=== PATIENT | male | born 1950 | race Hispanic/Latino ===

== ENCOUNTER 2021-05-26 12:49 | Inpatient (IN) | payer MEDICARE ==
[~2021-05-26] VITALS: Ht 172.7 cm; Wt 82.1 kg
[2021-05-26] MEDS ORDERED: SODIUM BICARBONATE 8.4% INJ 50 ML SYR ONE (12:55)
[2021-05-26] MEDS ORDERED: EPINEPHRINE HCL SYRINGE ONE (12:55)
[2021-05-26] MEDS ORDERED: DEXAMETHASONE SOD PHOS 10 MG/1 ML VIAL IV ONE (14:00)
[2021-05-26 14:17] LABS: BASOPHILS % 0.1 % (0.0-1.0); HEMOGLOBIN 13.2 g/dL (14.0-18.0); LYMPHOCYTES # (AUTO) 0.8 (1.0-3.2); MEAN CORPUSCULAR HEMOGLOBIN 27.4 pg (28-32); MEAN CORPUSCULAR HGB CONC 33.8 g/dL (31-35); MEAN CORPUSCULAR VOLUME 81.1 fL (81-99); MONOCYTES # (AUTO) 0.5 (0.2-0.8); MONOCYTES % 5.6 % (4.4-11.3); NEUTROPHILS # (AUTO) 6.7 (2.1-6.9); NEUTROPHILS % 83.7 % (38.7-80.0); PLATELET COUNT 333 x10e3/uL (140-360); RED BLOOD COUNT 4.81 x10e6/uL (4.3-5.7)
[2021-05-26 14:38] LABS: ALBUMIN/GLOBULIN RATIO 0.7 (0.8-2.0); ANION GAP 17.8 mmol/L (8-16); CREATININE, SERUM 0.82 mg/dL (0.72-1.25); POTASSIUM 3.8 mmol/L (3.5-5.1)
[2021-05-26] MEDS ORDERED: IOPAMIDOL 370 MG/ML 200 ML INFUS..BTL INJ ONE (15:02)
[2021-05-26] MEDS ORDERED: SODIUM CHLORIDE 0.9% 50ML 50 ML ONE (15:02)
[2021-05-26] MEDS ORDERED: REMDESIVIR 200MG 200 MG in SODIUM CHLORIDE 0.9% 100 ML IV ONE (16:30)
[2021-05-26] MEDS: ENOXAPARIN SOD INJ 40 MG/0.4 ML SYR SC SCH (17:20)
[2021-05-26] MEDS: ASCORBIC ACID 500 MG TAB PO SCH (17:20)
[2021-05-26] MEDS: CEFTRIAXONE 1 GM in SODIUM CHLORIDE 0.9% 50ML 50 ML IV SCH (19:46)
[2021-05-26 20:00] VITALS: BP 143/79
[2021-05-26] MEDS ORDERED: ZOLPIDEM TARTRATE 5 MG TAB PO PRN (21:00)
[2021-05-26 21:19] VITALS: BP 143/79
[2021-05-27] VITALS (7 sets, daily range): BP systolic 111–150; BP diastolic 68–81
[2021-05-27 06:07] LABS: BASOPHILS % 0.2 % (0.0-1.0); HEMATOCRIT 40.6 % (38.2-49.6); HEMOGLOBIN 13.4 g/dL (14.0-18.0); LYMPHOCYTES # (AUTO) 0.6 (1.0-3.2); LYMPHOCYTES % 10.5 % (18.0-39.1); MEAN CORPUSCULAR HEMOGLOBIN 27.3 pg (28-32); MEAN CORPUSCULAR VOLUME 82.7 fL (81-99); MONOCYTES # (AUTO) 0.4 (0.2-0.8); MONOCYTES % 6.7 % (4.4-11.3); NEUTROPHILS # (AUTO) 4.4 (2.1-6.9); NEUTROPHILS % 81.7 % (38.7-80.0); PLATELET COUNT 362 x10e3/uL (140-360); RED BLOOD COUNT 4.91 x10e6/uL (4.3-5.7)
[2021-05-27 06:32] LABS: ALBUMIN 2.6 g/dL (3.5-5.0); ALBUMIN/GLOBULIN RATIO 0.6 (0.8-2.0); ANION GAP 16.8 mmol/L (8-16); CALCIUM 9.2 mg/dL (8.4-10.2); CREATININE, SERUM 0.66 mg/dL (0.72-1.25); POTASSIUM 3.8 mmol/L (3.5-5.1)
[2021-05-27] MEDS ORDERED: REMDESIVIR 100MG 100 MG IV ONE (07:52)
[2021-05-27] MEDS: ASCORBIC ACID 500 MG TAB PO SCH ×2 (08:58→16:17)
[2021-05-27] MEDS: FAMOTIDINE 20 MG TAB PO SCH ×2 (08:59→16:16)
[2021-05-27] MEDS: REMDESIVIR 100MG 100 MG in SODIUM CHLORIDE 0.9% 100 ML IV SCH (14:13)
[2021-05-27] MEDS ORDERED: DEXAMETHASONE SOD PHOS 10 MG/1 ML VIAL IV SCH (15:00)
[2021-05-27] MEDS: CEFTRIAXONE 1 GM in SODIUM CHLORIDE 0.9% 50ML 50 ML IV SCH (16:17)
[2021-05-27] MEDS: ENOXAPARIN SOD INJ 40 MG/0.4 ML SYR SC SCH (16:17)
[2021-05-28] VITALS (8 sets, daily range): BP systolic 133–146; BP diastolic 71–87
[2021-05-28] MEDS: APIXAB 2.5 MG TABLET PO SCH ×2 (09:11→16:34)
[2021-05-28] MEDS: FAMOTIDINE 20 MG TAB PO SCH ×2 (09:11→16:33)
[2021-05-28] MEDS: ASCORBIC ACID 500 MG TAB PO SCH ×2 (09:11→16:34)
[2021-05-28] MEDS: REMDESIVIR 100MG 100 MG in SODIUM CHLORIDE 0.9% 100 ML IV SCH (13:39)
[2021-05-28] MEDS: CEFTRIAXONE 1 GM in SODIUM CHLORIDE 0.9% 50ML 50 ML IV SCH (16:34)
[2021-05-29] VITALS (14 sets, daily range): BP systolic 130–157; BP diastolic 69–86
[2021-05-29] MEDS: APIXAB 2.5 MG TABLET PO SCH ×2 (08:39→17:44)
[2021-05-29] MEDS: ASCORBIC ACID 500 MG TAB PO SCH ×2 (08:39→17:44)
[2021-05-29] MEDS: FAMOTIDINE 20 MG TAB PO SCH ×2 (08:39→16:20)
[2021-05-29] MEDS: REMDESIVIR 100MG 100 MG in SODIUM CHLORIDE 0.9% 100 ML IV SCH (15:17)
[2021-05-29] MEDS: CEFTRIAXONE 1 GM in SODIUM CHLORIDE 0.9% 50ML 50 ML IV SCH (17:44)
[2021-05-29] MEDS: DEXAMETHASONE SOD PHOS 10 MG/1 ML VIAL IV SCH (20:36)
[2021-05-29] MEDS: ACETAMINOPHEN 325 MG TAB PO PRN (22:09)
[2021-05-29] MEDS ORDERED: ACETAMINOPHEN 325 MG TAB ONE (22:16)
[2021-05-30] VITALS (25 sets, daily range): BP systolic 112–151; BP diastolic 55–85
[2021-05-30] MEDS: APIXAB 2.5 MG TABLET PO SCH ×2 (08:02→16:19)
[2021-05-30] MEDS: FAMOTIDINE 20 MG TAB PO SCH ×2 (08:02→16:19)
[2021-05-30] MEDS: ASCORBIC ACID 500 MG TAB PO SCH ×2 (08:02→16:19)
[2021-05-30 08:37] LABS: BASOPHILS % 0.2 % (0.0-1.0); HEMATOCRIT 40.8 % (38.2-49.6); HEMOGLOBIN 13.4 g/dL (14.0-18.0); LYMPHOCYTES # (AUTO) 0.4 (1.0-3.2); LYMPHOCYTES % 3.7 % (18.0-39.1); MEAN CORPUSCULAR HEMOGLOBIN 27.5 pg (28-32); MEAN CORPUSCULAR HGB CONC 32.8 g/dL (31-35); MEAN CORPUSCULAR VOLUME 83.8 fL (81-99); MONOCYTES # (AUTO) 0.3 (0.2-0.8); MONOCYTES % 2.6 % (4.4-11.3); NEUTROPHILS # (AUTO) 10.5 (2.1-6.9); NEUTROPHILS % 92.4 % (38.7-80.0); PLATELET COUNT 295 x10e3/uL (140-360); RED BLOOD COUNT 4.87 x10e6/uL (4.3-5.7); RED CELL DISTRIBUTION WIDTH 13.3 % (11.7-14.4)
[2021-05-30 09:11] LABS: ALBUMIN 2.4 g/dL (3.5-5.0); ALBUMIN/GLOBULIN RATIO 0.5 (0.8-2.0); ANION GAP 14.1 mmol/L (8-16); CREATININE, SERUM 0.7 mg/dL (0.72-1.25); POTASSIUM 4.1 mmol/L (3.5-5.1)
[2021-05-30 11:26] LABS: LYMPHOCYTES % (MANUAL) 2 % (19-48); NEUTROPHILS % (MANUAL) 98 % (40-74); PLATELET ESTIMATE ADEQUATE
[2021-05-30 11:27] LABS: PLATELET MORPHOLOGY COMMENT NORMAL; RBC MORPHOLOGY COMMENT NORMAL
[2021-05-30] MEDS: REMDESIVIR 100MG 100 MG in SODIUM CHLORIDE 0.9% 100 ML IV SCH (13:08)
[2021-05-30] MEDS: CEFTRIAXONE 1 GM in SODIUM CHLORIDE 0.9% 50ML 50 ML IV SCH (16:15)
[2021-05-30] MEDS: BARICITINIB 2 MG TABLET PO SCH (16:19)
[2021-05-30] MEDS: DEXAMETHASONE SOD PHOS 10 MG/1 ML VIAL IV SCH (20:57)
[2021-05-31] VITALS (24 sets, daily range): BP systolic 94–148; BP diastolic 51–85
[2021-05-31 05:56] LABS: BASOPHILS % 0.2 % (0.0-1.0); HEMOGLOBIN 12.6 g/dL (14.0-18.0); LYMPHOCYTES # (AUTO) 0.6 (1.0-3.2); LYMPHOCYTES % 4.8 % (18.0-39.1); MEAN CORPUSCULAR HEMOGLOBIN 27.2 pg (28-32); MEAN CORPUSCULAR HGB CONC 32.3 g/dL (31-35); MEAN CORPUSCULAR VOLUME 84.1 fL (81-99); MONOCYTES # (AUTO) 0.3 (0.2-0.8); MONOCYTES % 2.3 % (4.4-11.3); NEUTROPHILS # (AUTO) 11.6 (2.1-6.9); NEUTROPHILS % 91.7 % (38.7-80.0); PLATELET COUNT 277 x10e3/uL (140-360); RED BLOOD COUNT 4.64 x10e6/uL (4.3-5.7); RED CELL DISTRIBUTION WIDTH 13.4 % (11.7-14.4)
[2021-05-31 06:26] LABS: ALBUMIN 2.4 g/dL (3.5-5.0); ALBUMIN/GLOBULIN RATIO 0.5 (0.8-2.0); ANION GAP 14.4 mmol/L (8-16); CALCIUM 8.6 mg/dL (8.4-10.2); CREATININE, SERUM 0.71 mg/dL (0.72-1.25); POTASSIUM 4.4 mmol/L (3.5-5.1)
[2021-05-31] MEDS: FAMOTIDINE 20 MG TAB PO SCH ×2 (06:35→16:05)
[2021-05-31] MEDS: BARICITINIB 2 MG TABLET PO SCH (08:07)
[2021-05-31] MEDS: APIXAB 2.5 MG TABLET PO SCH ×2 (08:07→16:05)
[2021-05-31] MEDS: ASCORBIC ACID 500 MG TAB PO SCH ×2 (08:07→16:05)
[2021-05-31] MEDS: GUAIFENESIN/CODEINE 5 ML LIQD PO PRN (14:00)
[2021-05-31] MEDS: DEXAMETHASONE SOD PHOS 10 MG/1 ML VIAL IV SCH (20:17)
[2021-06-01] VITALS (25 sets, daily range): BP systolic 118–152; BP diastolic 70–95
[2021-06-01 05:06] LABS: BASOPHILS % 0.1 % (0.0-1.0); HEMATOCRIT 38.4 % (38.2-49.6); HEMOGLOBIN 12.5 g/dL (14.0-18.0); LYMPHOCYTES # (AUTO) 0.6 (1.0-3.2); LYMPHOCYTES % 4.3 % (18.0-39.1); MEAN CORPUSCULAR HEMOGLOBIN 27.4 pg (28-32); MEAN CORPUSCULAR HGB CONC 32.6 g/dL (31-35); MONOCYTES # (AUTO) 0.7 (0.2-0.8); MONOCYTES % 5.1 % (4.4-11.3); NEUTROPHILS # (AUTO) 11.5 (2.1-6.9); NEUTROPHILS % 89.6 % (38.7-80.0); PLATELET COUNT 264 x10e3/uL (140-360); RED BLOOD COUNT 4.57 x10e6/uL (4.3-5.7); RED CELL DISTRIBUTION WIDTH 13.4 % (11.7-14.4)
[2021-06-01 06:00] LABS: ALBUMIN 2.5 g/dL (3.5-5.0); ALBUMIN/GLOBULIN RATIO 0.6 (0.8-2.0); ANION GAP 12.6 mmol/L (8-16); CALCIUM 8.8 mg/dL (8.4-10.2); CREATININE, SERUM 0.75 mg/dL (0.72-1.25); POTASSIUM 4.6 mmol/L (3.5-5.1)
[2021-06-01] MEDS: APIXAB 2.5 MG TABLET PO SCH ×2 (08:07→16:11)
[2021-06-01] MEDS: FAMOTIDINE 20 MG TAB PO SCH ×2 (08:07→16:11)
[2021-06-01] MEDS: ASCORBIC ACID 500 MG TAB PO SCH ×2 (08:07→16:11)
[2021-06-01] MEDS: BARICITINIB 2 MG TABLET PO SCH (08:07)
[2021-06-01] MEDS: GUAIFENESIN/CODEINE 5 ML LIQD PO PRN ×2 (09:09→19:46)
[2021-06-01] MEDS: DEXAMETHASONE SOD PHOS 10 MG/1 ML VIAL IV SCH (19:46)
[2021-06-02] VITALS (15 sets, daily range): BP systolic 115–143; BP diastolic 68–83
[2021-06-02] MEDS: GUAIFENESIN/CODEINE 5 ML LIQD PO PRN ×5 (00:20→20:18)
[2021-06-02 06:40] LABS: BASOPHILS % 0.2 % (0.0-1.0); EOSINOPHILS % 0.3 % (0.0-6.0); HEMATOCRIT 42.3 % (38.2-49.6); HEMOGLOBIN 13.5 g/dL (14.0-18.0); LYMPHOCYTES # (AUTO) 0.6 (1.0-3.2); LYMPHOCYTES % 4.8 % (18.0-39.1); MEAN CORPUSCULAR HEMOGLOBIN 27.3 pg (28-32); MEAN CORPUSCULAR HGB CONC 31.9 g/dL (31-35); MEAN CORPUSCULAR VOLUME 85.6 fL (81-99); MONOCYTES # (AUTO) 0.7 (0.2-0.8); MONOCYTES % 5.5 % (4.4-11.3); NEUTROPHILS # (AUTO) 10.6 (2.1-6.9); NEUTROPHILS % 87.9 % (38.7-80.0); PLATELET COUNT 253 x10e3/uL (140-360); RED BLOOD COUNT 4.94 x10e6/uL (4.3-5.7); RED CELL DISTRIBUTION WIDTH 13.4 % (11.7-14.4)
[2021-06-02 06:58] LABS: ALBUMIN 2.5 g/dL (3.5-5.0); ALBUMIN/GLOBULIN RATIO 0.5 (0.8-2.0); ANION GAP 13.7 mmol/L (8-16); CALCIUM 8.9 mg/dL (8.4-10.2); CREATININE, SERUM 0.77 mg/dL (0.72-1.25); POTASSIUM 4.7 mmol/L (3.5-5.1)
[2021-06-02] MEDS: FAMOTIDINE 20 MG TAB PO SCH ×2 (07:56→09:01)
[2021-06-02] MEDS: ASCORBIC ACID 500 MG TAB PO SCH ×2 (09:01→16:05)
[2021-06-02] MEDS: BARICITINIB 2 MG TABLET PO SCH (09:01)
[2021-06-02] MEDS: APIXAB 2.5 MG TABLET PO SCH ×2 (09:01→16:05)
[2021-06-02] MEDS: DEXAMETHASONE SOD PHOS 10 MG/1 ML VIAL IV SCH (20:18)
[2021-06-03] VITALS (16 sets, daily range): BP systolic 114–136; BP diastolic 76–93
[2021-06-03] MEDS: GUAIFENESIN/CODEINE 5 ML LIQD PO PRN (05:44)
[2021-06-03 06:15] LABS: BASOPHILS % 0.2 % (0.0-1.0); EOSINOPHILS % 0.1 % (0.0-6.0); HEMATOCRIT 43.3 % (38.2-49.6); LYMPHOCYTES # (AUTO) 0.7 (1.0-3.2); LYMPHOCYTES % 4.4 % (18.0-39.1); MEAN CORPUSCULAR HEMOGLOBIN 27.6 pg (28-32); MEAN CORPUSCULAR HGB CONC 32.3 g/dL (31-35); MEAN CORPUSCULAR VOLUME 85.4 fL (81-99); MONOCYTES # (AUTO) 0.7 (0.2-0.8); MONOCYTES % 4.5 % (4.4-11.3); NEUTROPHILS # (AUTO) 13.4 (2.1-6.9); NEUTROPHILS % 89.2 % (38.7-80.0); PLATELET COUNT 251 x10e3/uL (140-360); RED BLOOD COUNT 5.07 x10e6/uL (4.3-5.7); RED CELL DISTRIBUTION WIDTH 13.3 % (11.7-14.4)
[2021-06-03 06:40] LABS: ALBUMIN 2.5 g/dL (3.5-5.0); ALBUMIN/GLOBULIN RATIO 0.5 (0.8-2.0); ANION GAP 15.8 mmol/L (8-16); CALCIUM 8.9 mg/dL (8.4-10.2); CREATININE, SERUM 0.72 mg/dL (0.72-1.25); POTASSIUM 4.8 mmol/L (3.5-5.1)
[2021-06-03] MEDS: BARICITINIB 2 MG TABLET PO SCH (08:42)
[2021-06-03] MEDS: ASCORBIC ACID 500 MG TAB PO SCH ×2 (08:42→16:20)
[2021-06-03] MEDS: APIXAB 2.5 MG TABLET PO SCH ×2 (08:42→16:20)
[2021-06-03] MEDS: FAMOTIDINE 20 MG TAB PO SCH ×2 (08:42→16:20)
[2021-06-03] MEDS ORDERED: ETOMIDATE 2 MG/ML 10 ML INJ IV ONE (15:01)
[2021-06-03] MEDS ORDERED: WATER STERILE 10 ML VIAL ONE (15:01)
[2021-06-03] MEDS ORDERED: SUCCINYLCHOLINE CHLORIDE 20 MG/ML 10ML VIAL ONE (15:01)
[2021-06-03] MEDS ORDERED: VECURONIUM BROMIDE FOR INJ 20 MG VIAL ONE (15:01)
[2021-06-03] MEDS: DEXAMETHASONE SOD PHOS 10 MG/1 ML VIAL IV SCH (20:24)
[2021-06-04] VITALS (24 sets, daily range): BP systolic 97–139; BP diastolic 54–89
[2021-06-04 05:00] LABS: BASOPHILS % 0.2 % (0.0-1.0); EOSINOPHILS % 0.1 % (0.0-6.0); HEMATOCRIT 45.6 % (38.2-49.6); HEMOGLOBIN 14.8 g/dL (14.0-18.0); LYMPHOCYTES # (AUTO) 0.9 (1.0-3.2); LYMPHOCYTES % 5.8 % (18.0-39.1); MEAN CORPUSCULAR HEMOGLOBIN 27.2 pg (28-32); MEAN CORPUSCULAR HGB CONC 32.5 g/dL (31-35); MEAN CORPUSCULAR VOLUME 83.8 fL (81-99); MONOCYTES # (AUTO) 0.5 (0.2-0.8); MONOCYTES % 3.3 % (4.4-11.3); NEUTROPHILS # (AUTO) 14.3 (2.1-6.9); PLATELET COUNT 305 x10e3/uL (140-360); RED BLOOD COUNT 5.44 x10e6/uL (4.3-5.7); RED CELL DISTRIBUTION WIDTH 13.5 % (11.7-14.4)
[2021-06-04 05:34] LABS: ALBUMIN 2.6 g/dL (3.5-5.0); ALBUMIN/GLOBULIN RATIO 0.5 (0.8-2.0); ANION GAP 16.8 mmol/L (8-16); CALCIUM 9.3 mg/dL (8.4-10.2); CREATININE, SERUM 0.83 mg/dL (0.72-1.25); POTASSIUM 4.8 mmol/L (3.5-5.1)
[2021-06-04] MEDS: FAMOTIDINE 20 MG TAB PO SCH ×2 (07:51→16:05)
[2021-06-04] MEDS: BARICITINIB 2 MG TABLET PO SCH (07:59)
[2021-06-04] MEDS: ASCORBIC ACID 500 MG TAB PO SCH ×2 (07:59→16:05)
[2021-06-04] MEDS: APIXAB 2.5 MG TABLET PO SCH ×2 (07:59→16:05)
[2021-06-04] MEDS: GUAIFENESIN/CODEINE 5 ML LIQD PO PRN (08:32)
[2021-06-04] MEDS ORDERED: LACTATED RINGER'S 500 ML INJ ONE (09:15)
[2021-06-04] MEDS ORDERED: DEXMEDETOMIDINE 400MCG/NS100ML 100 ML IV PRN (09:30)
[2021-06-04] MEDS: PIPERACILLIN/TAZOBACTAM 3.375 GM in SODIUM CHLORIDE 0.9% 50ML 50 ML IV SCH ×3 (09:54→21:00)
[2021-06-04] MEDS: DEXAMETHASONE SOD PHOS 10 MG/1 ML VIAL IV SCH (20:42)
[2021-06-05] VITALS (27 sets, daily range): BP systolic 62–143; BP diastolic 49–78
[2021-06-05] MEDS: GUAIFENESIN/CODEINE 5 ML LIQD PO PRN ×2 (03:13→05:36)
[2021-06-05] MEDS: PIPERACILLIN/TAZOBACTAM 3.375 GM in SODIUM CHLORIDE 0.9% 50ML 50 ML IV SCH ×4 (04:14→21:15)
[2021-06-05 05:48] LABS: BASOPHILS % 0.2 % (0.0-1.0); EOSINOPHILS % 0.1 % (0.0-6.0); HEMATOCRIT 39.8 % (38.2-49.6); HEMOGLOBIN 12.7 g/dL (14.0-18.0); LYMPHOCYTES # (AUTO) 0.8 (1.0-3.2); MEAN CORPUSCULAR HEMOGLOBIN 27.4 pg (28-32); MEAN CORPUSCULAR HGB CONC 31.9 g/dL (31-35); MONOCYTES # (AUTO) 0.6 (0.2-0.8); MONOCYTES % 3.3 % (4.4-11.3); NEUTROPHILS % 91.1 % (38.7-80.0); PLATELET COUNT 224 x10e3/uL (140-360); RED BLOOD COUNT 4.63 x10e6/uL (4.3-5.7); RED CELL DISTRIBUTION WIDTH 13.5 % (11.7-14.4)
[2021-06-05 06:26] LABS: ALBUMIN 2.3 g/dL (3.5-5.0); ALBUMIN/GLOBULIN RATIO 0.5 (0.8-2.0); ANION GAP 15.7 mmol/L (8-16); CALCIUM 8.6 mg/dL (8.4-10.2); CREATININE, SERUM 0.8 mg/dL (0.72-1.25); POTASSIUM 4.7 mmol/L (3.5-5.1)
[2021-06-05] MEDS: APIXAB 2.5 MG TABLET PO SCH ×2 (08:01→16:39)
[2021-06-05] MEDS: FAMOTIDINE 20 MG TAB PO SCH ×2 (08:01→16:39)
[2021-06-05] MEDS: ASCORBIC ACID 500 MG TAB PO SCH ×2 (08:01→16:39)
[2021-06-05] MEDS: FENTANYL 2000MCG/NS 250 250 ML IV SCH ×2 (15:09→21:27)
[2021-06-05] MEDS: MIDAZOLAM HCL 5MG/ML 10ML VIAL 100 ML IV PRN ×2 (15:12→21:16)
[2021-06-05] MEDS: ROCURONIUM 1250MG/NS 250 250 ML IV PRN (15:13)
[2021-06-05] MEDS ORDERED: SODIUM CHLORIDE 0.9% 1000ML 1,000 ML ONE (15:17)
[2021-06-05 17:14] LABS: ABG PH 7.21 (7.35-7.45)
[2021-06-05 17:15] LABS: ABG HCO3 29 mmol/L (22-26); ABG PCO2 73 mmHg (35-45); ABG PO2 82 mmHg (80-105); ABG TCO2 31
[2021-06-06] VITALS (30 sets, daily range): BP systolic 88–130; BP diastolic 45–71
[2021-06-06] MEDS: MIDAZOLAM HCL 5MG/ML 10ML VIAL 100 ML IV PRN ×5 (02:35→22:47)
[2021-06-06] MEDS: PIPERACILLIN/TAZOBACTAM 3.375 GM in SODIUM CHLORIDE 0.9% 50ML 50 ML IV SCH ×4 (04:19→22:13)
[2021-06-06] MEDS: FENTANYL 2000MCG/NS 250 250 ML IV SCH ×4 (04:21→22:46)
[2021-06-06 04:57] LABS: BASOPHILS % 0.2 % (0.0-1.0); EOSINOPHILS # (AUTO) 0.2 (0.0-0.4); EOSINOPHILS % 1.1 % (0.0-6.0); HEMATOCRIT 39.1 % (38.2-49.6); HEMOGLOBIN 12.1 g/dL (14.0-18.0); LYMPHOCYTES # (AUTO) 0.8 (1.0-3.2); LYMPHOCYTES % 4.5 % (18.0-39.1); MEAN CORPUSCULAR HEMOGLOBIN 27.5 pg (28-32); MEAN CORPUSCULAR HGB CONC 30.9 g/dL (31-35); MEAN CORPUSCULAR VOLUME 88.9 fL (81-99); MONOCYTES # (AUTO) 0.6 (0.2-0.8); MONOCYTES % 3.3 % (4.4-11.3); NEUTROPHILS # (AUTO) 16.7 (2.1-6.9); NEUTROPHILS % 89.8 % (38.7-80.0); PLATELET COUNT 215 x10e3/uL (140-360); RED CELL DISTRIBUTION WIDTH 13.6 % (11.7-14.4)
[2021-06-06 05:33] LABS: ALBUMIN/GLOBULIN RATIO 0.5 (0.8-2.0); ANION GAP 12.5 mmol/L (8-16); CREATININE, SERUM 0.77 mg/dL (0.72-1.25); POTASSIUM 4.5 mmol/L (3.5-5.1)
[2021-06-06] MEDS: APIXAB 2.5 MG TABLET PO SCH ×2 (07:53→16:03)
[2021-06-06] MEDS: ASCORBIC ACID 500 MG TAB PO SCH ×2 (07:53→16:03)
[2021-06-06] MEDS: FAMOTIDINE 20 MG TAB PO SCH ×2 (07:53→16:03)
[2021-06-06 08:22] LABS: ABG PH 7.26 (7.35-7.45)
[2021-06-06 08:23] LABS: ABG HCO3 31 mmol/L (22-26); ABG PCO2 69 mmHg (35-45); ABG PO2 111 mmHg (80-105); ABG TCO2 33
[2021-06-06] MEDS ORDERED: PIPERACILLIN/TAZOBACTAM 3.375 GM VIAL ONE (22:46)
[2021-06-06] MEDS: ROCURONIUM 1250MG/NS 250 250 ML IV PRN (22:47)
[2021-06-06] MEDS ORDERED: SODIUM CHLORIDE 0.9% 50ML 50 ML ONE (22:48)
[2021-06-07] VITALS (27 sets, daily range): BP systolic 75–122; BP diastolic 44–71
[2021-06-07] MEDS: ACETAMINOPHEN 325 MG TAB PO PRN ×3 (00:18→19:44)
[2021-06-07] MEDS: PIPERACILLIN/TAZOBACTAM 3.375 GM in SODIUM CHLORIDE 0.9% 50ML 50 ML IV SCH ×4 (04:09→22:00)
[2021-06-07 05:41] LABS: BASOPHILS % 0.1 % (0.0-1.0); EOSINOPHILS # (AUTO) 0.2 (0.0-0.4); HEMATOCRIT 35.1 % (38.2-49.6); HEMOGLOBIN 10.8 g/dL (14.0-18.0); LYMPHOCYTES # (AUTO) 0.7 (1.0-3.2); LYMPHOCYTES % 4.1 % (18.0-39.1); MEAN CORPUSCULAR HEMOGLOBIN 27.5 pg (28-32); MEAN CORPUSCULAR HGB CONC 30.8 g/dL (31-35); MEAN CORPUSCULAR VOLUME 89.3 fL (81-99); MONOCYTES # (AUTO) 0.6 (0.2-0.8); MONOCYTES % 3.6 % (4.4-11.3); NEUTROPHILS # (AUTO) 14.7 (2.1-6.9); NEUTROPHILS % 90.3 % (38.7-80.0); PLATELET COUNT 219 x10e3/uL (140-360); RED BLOOD COUNT 3.93 x10e6/uL (4.3-5.7); RED CELL DISTRIBUTION WIDTH 13.6 % (11.7-14.4)
[2021-06-07] MEDS: MIDAZOLAM HCL 5MG/ML 10ML VIAL 100 ML IV PRN ×4 (05:41→20:34)
[2021-06-07 06:09] LABS: ALBUMIN 1.7 g/dL (3.5-5.0); ALBUMIN/GLOBULIN RATIO 0.4 (0.8-2.0); ANION GAP 11.4 mmol/L (8-16); CALCIUM 7.8 mg/dL (8.4-10.2); CREATININE, SERUM 0.68 mg/dL (0.72-1.25); POTASSIUM 4.4 mmol/L (3.5-5.1)
[2021-06-07 07:22] LABS: ABG HCO3 33 mmol/L (22-26); ABG PCO2 60 mmHg (35-45); ABG PH 7.35 (7.35-7.45); ABG PO2 72 mmHg (80-105); ABG TCO2 35
[2021-06-07] MEDS: FAMOTIDINE 20 MG TAB PO SCH ×2 (08:26→16:09)
[2021-06-07] MEDS: ASCORBIC ACID 500 MG TAB PO SCH ×2 (08:26→16:09)
[2021-06-07] MEDS: APIXAB 2.5 MG TABLET PO SCH ×2 (08:26→16:09)
[2021-06-07] MEDS: FENTANYL 2000MCG/NS 250 250 ML IV SCH ×2 (09:32→17:53)
[2021-06-07] MEDS: PROPOFOL IV EMULSION 10MG/ML 100 ML IV SCH (17:21)
[2021-06-08] VITALS (28 sets, daily range): BP systolic 104–122; BP diastolic 56–65
[2021-06-08] MEDS: FENTANYL 2000MCG/NS 250 250 ML IV SCH ×3 (01:10→21:01)
[2021-06-08] MEDS: MIDAZOLAM HCL 5MG/ML 10ML VIAL 100 ML IV PRN ×4 (01:56→19:49)
[2021-06-08] MEDS: PIPERACILLIN/TAZOBACTAM 3.375 GM in SODIUM CHLORIDE 0.9% 50ML 50 ML IV SCH ×4 (04:11→21:02)
[2021-06-08 05:02] LABS: BASOPHILS % 0.3 % (0.0-1.0); EOSINOPHILS # (AUTO) 0.2 (0.0-0.4); EOSINOPHILS % 1.6 % (0.0-6.0); HEMATOCRIT 32.9 % (38.2-49.6); HEMOGLOBIN 10.3 g/dL (14.0-18.0); LYMPHOCYTES # (AUTO) 0.8 (1.0-3.2); LYMPHOCYTES % 5.2 % (18.0-39.1); MEAN CORPUSCULAR HEMOGLOBIN 27.6 pg (28-32); MEAN CORPUSCULAR HGB CONC 31.3 g/dL (31-35); MEAN CORPUSCULAR VOLUME 88.2 fL (81-99); MONOCYTES # (AUTO) 0.7 (0.2-0.8); MONOCYTES % 4.5 % (4.4-11.3); NEUTROPHILS # (AUTO) 13.3 (2.1-6.9); NEUTROPHILS % 87.2 % (38.7-80.0); PLATELET COUNT 274 x10e3/uL (140-360); RED BLOOD COUNT 3.73 x10e6/uL (4.3-5.7); RED CELL DISTRIBUTION WIDTH 13.8 % (11.7-14.4)
[2021-06-08 05:44] LABS: ALBUMIN 1.5 g/dL (3.5-5.0); ALBUMIN/GLOBULIN RATIO 0.4 (0.8-2.0); ANION GAP 14.2 mmol/L (8-16); CALCIUM 7.9 mg/dL (8.4-10.2); CREATININE, SERUM 0.69 mg/dL (0.72-1.25); POTASSIUM 4.2 mmol/L (3.5-5.1)
[2021-06-08] MEDS: ASCORBIC ACID 500 MG TAB PO SCH ×2 (07:35→18:16)
[2021-06-08] MEDS: APIXAB 2.5 MG TABLET PO SCH (07:35)
[2021-06-08] MEDS: FAMOTIDINE 20 MG TAB PO SCH ×2 (07:35→16:16)
[2021-06-08] MEDS: PROPOFOL IV EMULSION 10MG/ML 100 ML IV SCH ×2 (07:37→20:56)
[2021-06-08 08:36] LABS: ABG PCO2 68 mmHg (35-45); ABG PH 7.33 (7.35-7.45); ABG PO2 86 mmHg (80-105)
[2021-06-08 08:37] LABS: ABG HCO3 36 mmol/L (22-26); ABG TCO2 38
[2021-06-08] MEDS ORDERED: ALBUMIN 25% 25GM 100ML 0.25 GM/ML BTL IV SCH (14:00)
[2021-06-08] MEDS: FUROSEMIDE INJ 10 MG/ML 4 ML VIAL IV SCH (14:21)
[2021-06-08] MEDS: ALBUMIN 25% 25GM 100ML 100 ML IV SCH ×2 (14:21→21:02)
[2021-06-08] MEDS: NOREPINEPHRINE 8 MG/D5W 250 ML 250 ML IV PRN (20:56)
[2021-06-08] MEDS: ENOXAPARIN SOD INJ 40 MG/0.4 ML SYR SC SCH (21:02)
[2021-06-09] VITALS (26 sets, daily range): BP systolic 91–133; BP diastolic 52–73
[2021-06-09] MEDS: MIDAZOLAM HCL 5MG/ML 10ML VIAL 100 ML IV PRN ×4 (01:11→18:37)
[2021-06-09] MEDS: ACETAMINOPHEN 325 MG TAB PO PRN ×2 (02:15→21:08)
[2021-06-09] MEDS: FUROSEMIDE INJ 10 MG/ML 4 ML VIAL IV SCH (02:15)
[2021-06-09] MEDS: PIPERACILLIN/TAZOBACTAM 3.375 GM in SODIUM CHLORIDE 0.9% 50ML 50 ML IV SCH ×4 (03:15→21:07)
[2021-06-09] MEDS: FENTANYL 2000MCG/NS 250 250 ML IV SCH ×3 (04:22→18:36)
[2021-06-09 06:08] LABS: BASOPHILS # (AUTO) 0.1 (0.0-0.1); BASOPHILS % 0.4 % (0.0-1.0); EOSINOPHILS # (AUTO) 0.2 (0.0-0.4); EOSINOPHILS % 1.4 % (0.0-6.0); HEMATOCRIT 32.7 % (38.2-49.6); HEMOGLOBIN 9.7 g/dL (14.0-18.0); LYMPHOCYTES # (AUTO) 0.9 (1.0-3.2); LYMPHOCYTES % 6.3 % (18.0-39.1); MEAN CORPUSCULAR HEMOGLOBIN 27.3 pg (28-32); MEAN CORPUSCULAR HGB CONC 29.7 g/dL (31-35); MEAN CORPUSCULAR VOLUME 92.1 fL (81-99); MONOCYTES # (AUTO) 0.8 (0.2-0.8); MONOCYTES % 5.9 % (4.4-11.3); NEUTROPHILS # (AUTO) 11.7 (2.1-6.9); NEUTROPHILS % 84.9 % (38.7-80.0); PLATELET COUNT 260 x10e3/uL (140-360); RED BLOOD COUNT 3.55 x10e6/uL (4.3-5.7); RED CELL DISTRIBUTION WIDTH 14.2 % (11.7-14.4)
[2021-06-09] MEDS: ALBUMIN 25% 25GM 100ML 100 ML IV SCH (06:23)
[2021-06-09 06:27] LABS: ALBUMIN 2.5 g/dL (3.5-5.0); ALBUMIN/GLOBULIN RATIO 0.6 (0.8-2.0); ANION GAP 13.7 mmol/L (8-16); CALCIUM 7.9 mg/dL (8.4-10.2); CREATININE, SERUM 0.81 mg/dL (0.72-1.25); POTASSIUM 3.7 mmol/L (3.5-5.1)
[2021-06-09] MEDS: FAMOTIDINE 20 MG TAB PO SCH ×2 (07:18→17:20)
[2021-06-09] MEDS: ENOXAPARIN SOD INJ 40 MG/0.4 ML SYR SC SCH ×2 (08:28→21:07)
[2021-06-09] MEDS: ASCORBIC ACID 500 MG TAB PO SCH ×2 (08:28→17:20)
[2021-06-09 09:19] LABS: ABG HCO3 38 mmol/L (22-26); ABG PH 7.35 (7.35-7.45); ABG PO2 58 mmHg (80-105); ABG TCO2 40
[2021-06-09 09:20] LABS: ABG PCO2 70 mmHg (35-45)
[2021-06-09] MEDS ORDERED: SODIUM CHLORIDE 0.9% 250ML 250 ML ONE (10:00)
[2021-06-09] MEDS: PROPOFOL IV EMULSION 10MG/ML 100 ML IV SCH ×2 (15:38→21:08)
[2021-06-09] MEDS: ROCURONIUM 1250MG/NS 250 250 ML IV PRN (21:08)
[2021-06-10] VITALS (27 sets, daily range): BP systolic 90–109; BP diastolic 51–72
[2021-06-10] MEDS: FENTANYL 2000MCG/NS 250 250 ML IV SCH ×4 (00:30→22:00)
[2021-06-10] MEDS: MIDAZOLAM HCL 5MG/ML 10ML VIAL 100 ML IV PRN ×4 (00:44→22:00)
[2021-06-10] MEDS: PIPERACILLIN/TAZOBACTAM 3.375 GM in SODIUM CHLORIDE 0.9% 50ML 50 ML IV SCH ×2 (04:07→09:33)
[2021-06-10] MEDS: NOREPINEPHRINE 8 MG/D5W 250 ML 250 ML IV PRN (06:11)
[2021-06-10 06:34] LABS: BASOPHILS # (AUTO) 0.1 (0.0-0.1); BASOPHILS % 0.4 % (0.0-1.0); EOSINOPHILS % 0.1 % (0.0-6.0); HEMATOCRIT 34.8 % (38.2-49.6); HEMOGLOBIN 10.3 g/dL (14.0-18.0); LYMPHOCYTES % 4.8 % (18.0-39.1); MEAN CORPUSCULAR HEMOGLOBIN 27.6 pg (28-32); MEAN CORPUSCULAR HGB CONC 29.6 g/dL (31-35); MEAN CORPUSCULAR VOLUME 93.3 fL (81-99); MONOCYTES # (AUTO) 1.2 (0.2-0.8); MONOCYTES % 5.9 % (4.4-11.3); NEUTROPHILS # (AUTO) 18.2 (2.1-6.9); NEUTROPHILS % 87.3 % (38.7-80.0); PLATELET COUNT 378 x10e3/uL (140-360); RED BLOOD COUNT 3.73 x10e6/uL (4.3-5.7); RED CELL DISTRIBUTION WIDTH 14.6 % (11.7-14.4)
[2021-06-10 06:36] LABS: ALBUMIN 2.6 g/dL (3.5-5.0); ALBUMIN/GLOBULIN RATIO 0.6 (0.8-2.0); CALCIUM 8.4 mg/dL (8.4-10.2); CREATININE, SERUM 0.89 mg/dL (0.72-1.25)
[2021-06-10] MEDS: FAMOTIDINE 20 MG TAB PO SCH ×2 (07:46→16:13)
[2021-06-10] MEDS: ACETAMINOPHEN 325 MG TAB PO PRN (07:46)
[2021-06-10] MEDS: ENOXAPARIN SOD INJ 40 MG/0.4 ML SYR SC SCH ×2 (08:41→22:43)
[2021-06-10] MEDS: ASCORBIC ACID 500 MG TAB PO SCH ×2 (08:41→16:13)
[2021-06-10 09:04] LABS: ABG PH 7.32 (7.35-7.45)
[2021-06-10 09:05] LABS: ABG HCO3 38 mmol/L (22-26); ABG PCO2 74 mmHg (35-45); ABG PO2 70 mmHg (80-105); ABG TCO2 41
[2021-06-10] MEDS: METOCLOPRAMIDE HCL 10 MG/2ML VIAL IV SCH ×2 (09:34→16:13)
[2021-06-10] MEDS: Vancomycin IV 1 GM in SODIUM CHLORIDE 0.9% 250ML 250 ML IV SCH ×2 (12:33→22:43)
[2021-06-10] MEDS: MEROPENEM 1 GM in SODIUM CHLORIDE 0.9% 100 ML IV SCH ×2 (12:36→22:43)
[2021-06-10] MEDS ORDERED: FUROSEMIDE INJ 10 MG/ML 2 ML VIAL IV ONE (14:45)
[2021-06-10 16:22] LABS: TOTAL PROTEIN, URINE 171.8 mg/dL (1-14)
[2021-06-10 16:25] LABS: CLARITY,URINE SL CLOUDY (CLEAR); COLOR,URINE YELLOW (YELLOW); KETONES,URINE NEGATIVE (NEGATIVE); LEUKOCYTE ESTERASE ,URINE NEGATIVE (NEGATIVE); NITRITE,URINE NEGATIVE (NEGATIVE); PROTEIN,URINE DIPSTICK 2+ (NEGATIVE); URINE UROBILINOGEN 4 mg/dL (0.2 - 1)
[2021-06-10 16:31] LABS: BACTERIA,URINE MODERATE /HPF; EPITHELIAL CELLS,URINE FEW /LPF; RBC,URINE 0-5 /HPF (0-5); WBC,URINE (MAN) 0-5 /HPF (0-5)
[2021-06-10 18:19] LABS: CREATININE,URINE RANDOM 181.91 mg/dL (63-166)
[2021-06-11] VITALS (22 sets, daily range): BP systolic 95–132; BP diastolic 54–95
[2021-06-11] MEDS: METOCLOPRAMIDE HCL 10 MG/2ML VIAL IV SCH ×4 (00:04→17:23)
[2021-06-11] MEDS: FENTANYL 2000MCG/NS 250 250 ML IV SCH ×3 (04:08→17:29)
[2021-06-11] MEDS: MIDAZOLAM HCL 5MG/ML 10ML VIAL 100 ML IV PRN ×4 (04:09→21:18)
[2021-06-11] MEDS: NOREPINEPHRINE 8 MG/D5W 250 ML 250 ML IV PRN (04:10)
[2021-06-11] MEDS: PROPOFOL IV EMULSION 10MG/ML 100 ML IV SCH (04:10)
[2021-06-11] MEDS: MEROPENEM 1 GM in SODIUM CHLORIDE 0.9% 100 ML IV SCH ×3 (05:53→21:17)
[2021-06-11 06:00] LABS: BASOPHILS # (AUTO) 0.1 (0.0-0.1); BASOPHILS % 0.3 % (0.0-1.0); EOSINOPHILS # (AUTO) 0.1 (0.0-0.4); EOSINOPHILS % 0.6 % (0.0-6.0); HEMATOCRIT 33.8 % (38.2-49.6); HEMOGLOBIN 9.7 g/dL (14.0-18.0); LYMPHOCYTES # (AUTO) 1.2 (1.0-3.2); LYMPHOCYTES % 5.8 % (18.0-39.1); MEAN CORPUSCULAR HEMOGLOBIN 27.6 pg (28-32); MEAN CORPUSCULAR HGB CONC 28.7 g/dL (31-35); MONOCYTES # (AUTO) 1.3 (0.2-0.8); MONOCYTES % 6.2 % (4.4-11.3); NEUTROPHILS % 84.2 % (38.7-80.0); PLATELET COUNT 409 x10e3/uL (140-360); RED BLOOD COUNT 3.52 x10e6/uL (4.3-5.7)
[2021-06-11 06:45] LABS: ALBUMIN 2.4 g/dL (3.5-5.0); ALBUMIN/GLOBULIN RATIO 0.5 (0.8-2.0); ANION GAP 15.2 mmol/L (8-16); CALCIUM 8.1 mg/dL (8.4-10.2); CREATININE, SERUM 0.84 mg/dL (0.72-1.25); POTASSIUM 5.2 mmol/L (3.5-5.1)
[2021-06-11] MEDS ORDERED: ACETAMINOPHEN 1000 MG/100 ML IV STA (07:40)
[2021-06-11] MEDS: FAMOTIDINE 20 MG TAB PO SCH ×2 (07:55→17:23)
[2021-06-11] MEDS: ENOXAPARIN SOD INJ 40 MG/0.4 ML SYR SC SCH ×2 (07:56→21:00)
[2021-06-11] MEDS: ASCORBIC ACID 500 MG TAB PO SCH ×2 (07:56→17:23)
[2021-06-11 07:57] LABS: LYMPHOCYTES % (MANUAL) 5 % (19-48); MONOCYTES % (MANUAL) 6 % (3.4-9.0); NEUTROPHILS % (MANUAL) 89 % (40-74); PLATELET ESTIMATE ADEQUATE; PLATELET MORPHOLOGY COMMENT NORMAL; RBC MORPHOLOGY COMMENT NORMAL
[2021-06-11] MEDS ORDERED: ALBUMIN 25% 25GM 100ML 0.25 GM/ML BTL IV SCH (10:00)
[2021-06-11] MEDS: FUROSEMIDE INJ 10 MG/ML 4 ML VIAL IV SCH ×2 (11:04→21:00)
[2021-06-11 11:11] LABS: ABG HCO3 38 mmol/L (22-26); ABG PCO2 78 mmHg (35-45); ABG PO2 63 mmHg (80-105); ABG TCO2 40
[2021-06-11] MEDS: Vancomycin IV 1 GM in SODIUM CHLORIDE 0.9% 250ML 250 ML IV SCH ×2 (11:53→23:15)
[2021-06-11] MEDS ORDERED: DEXTROSE 50% SYRINGE 50 ML IV STA (15:09)
[2021-06-11] MEDS ORDERED: CALCIUM GLUCONATE 10% INJ 4.65 MEQ in SODIUM CHLORIDE 0.9% 50ML 50 ML IV ONE (15:15)
[2021-06-11] MEDS ORDERED: INSULIN REGULAR, HUMAN 100 UNIT/1 ML SQ ONE (15:15)
[2021-06-11] MEDS: ALBUMIN 25% 25GM 100ML 100 ML IV SCH (17:49)
[2021-06-11] MEDS ORDERED: SODIUM CHLORIDE 0.9% 500ML 500 ML IV ONE ×2 (22:15→22:30)
[2021-06-12] VITALS (26 sets, daily range): BP systolic 0–103; BP diastolic 0–68
[2021-06-12] MEDS: METOCLOPRAMIDE HCL 10 MG/2ML VIAL IV SCH ×3 (00:39→13:48)
[2021-06-12] MEDS: FENTANYL 2000MCG/NS 250 250 ML IV SCH ×2 (00:39→08:52)
[2021-06-12] MEDS: ALBUMIN 25% 25GM 100ML 100 ML IV SCH (02:08)
[2021-06-12] MEDS: NOREPINEPHRINE 8 MG/D5W 250 ML 250 ML IV PRN (02:33)
[2021-06-12] MEDS: MIDAZOLAM HCL 5MG/ML 10ML VIAL 100 ML IV PRN ×2 (02:34→08:51)
[2021-06-12] MEDS ORDERED: ACETAMINOPHEN 1000 MG/100 ML 100 ML IV ONE (02:43)
[2021-06-12] MEDS ORDERED: VASOPRESSIN 60 UNIT in DEXTROSE 5% 50ML 57 ML IV PRN (04:30)
[2021-06-12] MEDS ORDERED: DEXTROSE 5% 50ML 100 ML IV ONE (04:42)
[2021-06-12] MEDS ORDERED: VASOPRESSIN INJ 20 UNIT/ML VIAL ONE (04:43)
[2021-06-12] MEDS: MEROPENEM 1 GM in SODIUM CHLORIDE 0.9% 100 ML IV SCH ×2 (05:43→13:48)
[2021-06-12] MEDS: ROCURONIUM 1250MG/NS 250 250 ML IV PRN (05:44)
[2021-06-12 05:54] LABS: BASOPHILS # (AUTO) 0.1 (0.0-0.1); BASOPHILS % 0.5 % (0.0-1.0); HEMATOCRIT 30.2 % (38.2-49.6); HEMOGLOBIN 8.7 g/dL (14.0-18.0); LYMPHOCYTES # (AUTO) 1.3 (1.0-3.2); LYMPHOCYTES % 5.7 % (18.0-39.1); MEAN CORPUSCULAR HEMOGLOBIN 27.9 pg (28-32); MEAN CORPUSCULAR HGB CONC 28.8 g/dL (31-35); MEAN CORPUSCULAR VOLUME 96.8 fL (81-99); MONOCYTES # (AUTO) 1.3 (0.2-0.8); MONOCYTES % 5.7 % (4.4-11.3); NEUTROPHILS # (AUTO) 17.7 (2.1-6.9); NEUTROPHILS % 80.8 % (38.7-80.0); PLATELET COUNT 428 x10e3/uL (140-360); RED BLOOD COUNT 3.12 x10e6/uL (4.3-5.7); RED CELL DISTRIBUTION WIDTH 15.5 % (11.7-14.4)
[2021-06-12 06:30] LABS: ALBUMIN/GLOBULIN RATIO 0.9 (0.8-2.0); ANION GAP 16.6 mmol/L (8-16); CALCIUM 7.3 mg/dL (8.4-10.2); CREATININE, SERUM 1.83 mg/dL (0.72-1.25); POTASSIUM 5.6 mmol/L (3.5-5.1)
[2021-06-12 07:08] LABS: MAGNESIUM 2.3 MG/DL (1.3-2.1); PHOSPHORUS 3.1 MG/DL (2.3-4.7)
[2021-06-12] MEDS: FAMOTIDINE 20 MG TAB PO SCH (07:30)
[2021-06-12] MEDS: PROPOFOL IV EMULSION 10MG/ML 100 ML IV SCH (07:59)
[2021-06-12] MEDS: ASCORBIC ACID 500 MG TAB PO SCH (07:59)
[2021-06-12 08:20] LABS: ABG HCO3 31 mmol/L (22-26); ABG PCO2 78 mmHg (35-45); ABG PO2 48 mmHg (80-105); ABG TCO2 33
[2021-06-12] MEDS ORDERED: ENOXAPARIN SODIUM INJ 100 MG/ML SYR SC SCH (09:00)
[2021-06-12] MEDS ORDERED: BALSAM PERU/CASTOR OIL 60 GM OINT...G. TP SCH (09:00)
[2021-06-12] MEDS ORDERED: IBUPROFEN 800MG/ 200ML 200 ML IV ONE (09:10)
[2021-06-12] MEDS: PHENYLEPHRINE 10MG/ML VIAL 40 MG in DEXTROSE 5% 250ML 246 ML IV SCH ×2 (10:18→13:48)
[2021-06-12 10:26] LABS: LYMPHOCYTES % (MANUAL) 8 % (19-48); METAMYELOCYTES % (MANUAL) 1 % (0-0); MONOCYTES % (MANUAL) 6 % (3.4-9.0); MYELOCYTES % (MANUAL) 4 % (0-0); NEUTROPHILS % (MANUAL) 79 % (40-74); PROMYELOCYTES % (MANUAL) 2 % (0-0)
[2021-06-12 10:27] LABS: PLATELET ESTIMATE ADEQUATE; PLATELET MORPHOLOGY COMMENT FEW LARGE; RBC MORPHOLOGY COMMENT NORMAL
[2021-06-12] MEDS ORDERED: Vancomycin IV 1 GM in SODIUM CHLORIDE 0.9% 250ML 250 ML IV SCH (11:00)
[2021-06-12] MEDS ORDERED: SODIUM CHLORIDE 0.9% 250ML 500 ML ONE (12:23)
[2021-06-12] MEDS ORDERED: Vancomycin IV 1 GM VIAL ONE (13:27)
[2021-06-12] MEDS ORDERED: Morphine 2mg Syringe 2 MG/ML SYR IV STA (13:58)
[2021-06-12] MEDS ORDERED: LORAZEPAM INJ 2 MG/ML VIAL IV ONE (14:00)
[2021-06-13] MEDS ORDERED: ENOXAPARIN SODIUM INJ 100 MG/ML SYR SC SCH (17:00)
== END 2021-06-12 17:30 | disposition expired | DRG 207 ==
LOC: ER 12:57 → ERHOLD 15:05 → IMCU 16:11 → ICU 05-29 12:00 → COVIDICU 06-11 14:45
PROVIDERS: ADMIT Internal Medicine; ATTEND Internal Medicine
PROC: 8E0ZXY6 Isolation (ICD-10-PCS; 2021-05-26)
PROC: 02HV33Z Insertion of Infusion Device into Superior Vena Cava, Percutaneous Approach (ICD-10-PCS; 2021-05-29)
PROC: 0BH18EZ Insertion of Endotracheal Airway into Trachea, Via Natural or Artificial Opening Endoscopic (ICD-10-PCS; principal; 2021-06-05)
PROC: 5A1955Z Respiratory Ventilation, Greater than 96 Consecutive Hours (ICD-10-PCS; 2021-06-05)
PROC: 03HY33Z Insertion of Infusion Device into Upper Artery, Percutaneous Approach (ICD-10-PCS; 2021-06-05)
DX: U07.1 COVID-19 (principal); J12.82 Pneumonia due to coronavirus disease 2019; J15.9 Unspecified bacterial pneumonia; J80 Acute respiratory distress syndrome; I21.4 Non-ST elevation (NSTEMI) myocardial infarction; K72.00 Acute and subacute hepatic failure without coma; N17.9 Acute kidney failure, unspecified; E87.3 Alkalosis; E87.4 Mixed disorder of acid-base balance; B17.8 Other specified acute viral hepatitis; R57.9 Shock, unspecified; E86.1 Hypovolemia; I35.0 Nonrheumatic aortic (valve) stenosis; D64.9 Anemia, unspecified; R73.9 Hyperglycemia, unspecified; E87.5 Hyperkalemia; E83.51 Hypocalcemia; I46.9 Cardiac arrest, cause unspecified
CPT/HCPCS: 31500; 36415; 36569; 36600; 71045; 71260; 74470; 76770; 80053; 81001; 82570; 82728; 82805; 82948; 83735; 84100; 84156; 85025; 85379; 86140; 87040; 87070; 87186; 87205; 92950; 93005; 93306; 94002; 94003; 96360; 99251; 99284; J0171; J0330; J0456; J0610; J0696; J1100; J1650; J1817; J1940; J2060; J2185; J2270; J2370; J2543; J2765; J3370; J7030; J7040; J7050; J7121; J7799; P9047; Q9967; U0002